=== PATIENT | male | born 1955 | race Two or more races ===

== ENCOUNTER 2021-12-23 18:34 | Emergency (ER) | payer OTHER ==
[~2021-12-23] VITALS: Ht 167.6 cm; Wt 88.0 kg
[~2021-12-23 18:34] MED LIST: AMLO5TAB4; BENA10TA74; METF-881
[2021-12-23] MEDS ORDERED: IV NS 0.9% 1,000 ML BAG IV ONE (19:00)
[2021-12-23] MEDS ORDERED: CEFEPIME 1 GM in IV D5W 50 ML IV ONE (19:00)
[2021-12-23] MEDS ORDERED: VANCOMYCIN 1 GM in IV D5W 250 ML IV ONE (19:00)
--- NOTE | 2021-12-23 19:05 | NUR ---
pt bibself c/o BLE swelling, redness, and weeping x 22 days. pt [id number] breathing evenly and unlabored. Pt attached to monitor and pox.Pt given blanket and call light within reach. will continue to monitor.
--- NOTE | 2021-12-23 19:12 | NUR ---
X-RAY TECH AT THE BEDSIDE
[2021-12-23] MEDS ORDERED: VANCOMYCIN 1 GM VIAL ONE (19:15)
[2021-12-23] MEDS ORDERED: CEFEPIME 1 GM VIAL ONE (19:15)
[2021-12-23 19:48] LABS: CALCIUM, SERUM 8.8 mg/dL (8.5-10.1); CREATININE 1.4 mg/dL (0.6-1.3)
[2021-12-23 19:51] LABS: BASOPHILS % (AUTO) 0.2 % (0.0-2.0); EOSINOPHILS % (AUTO) 7.2 % (0.0-6.0); HEMATOCRIT 45 % (39-51); HEMOGLOBIN 15.3 g/dL (13.5-17.5); LYMPHOCYTES # (AUTO) 1.6 K/uL (0.8-4.8); MEAN CORPUSCULAR HGB CONC 34 g/dl (31.0-36.0); MEAN CORPUSCULAR VOLUME 94 fL (80-96); MONOCYTES # (AUTO) 0.7 K/uL (0.1-1.30); MONOCYTES % (AUTO) 8.5 % (2.0-12.0); NEUTROPHILS # (AUTO) 5.4 K/uL (1.8-8.9); NEUTROPHILS % (AUTO) 65.1 % (43.0-81.0); PLATELET COUNT (AUTO) 324 K/uL (150-450); WHITE BLOOD COUNT (AUTO) 8.3 K/uL (4.3-11.0)
[2021-12-23 19:53] LABS: ALBUMIN 3.9 g/dL (3.4-5.0); BILIRUBIN,DIRECT 0.1 mg/dL (0.0-0.2); BILIRUBIN,TOTAL 0.5 mg/dL (0.2-1.0); TOTAL PROTEIN, SERUM 7.2 g/dL (6.4-8.2)
--- NOTE | 2021-12-23 20:00 | NUR ---
covid swab sent to lab
--- NOTE | 2021-12-23 23:21 | NUR ---
faxed covid neg result to [facility]
[2021-12-24 00:50] VITALS: BP 120/75
--- NOTE | 2021-12-24 01:17 | NUR ---
TRANSFER INFO: PT GOING TO [id number]. NUMBER FOR REPORT [phone]
--- NOTE | 2021-12-24 01:22 | NUR ---
GAVE REPORT TO JACEK WARREN AT [facility]
--- NOTE | 2021-12-24 01:27 | NUR ---
[facility] ETA 5MIN
--- NOTE | 2021-12-24 01:38 | NUR ---
GAVE REPORT TO EMS
== END 2021-12-24 01:38 | disposition short-term general hospital (02) ==
LOC: ER 18:47
DX: L03.116 Cellulitis of left lower limb (principal); L03.115 Cellulitis of right lower limb; Z20.822 Contact with and (suspected) exposure to COVID-19; R91.8 Other nonspecific abnormal finding of lung field; E11.65 Type 2 diabetes mellitus with hyperglycemia; Z79.84 Long term (current) use of oral hypoglycemic drugs; I10 Essential (primary) hypertension; Z79.899 Other long term (current) drug therapy; N28.9 Disorder of kidney and ureter, unspecified
CPT/HCPCS: 36415; 71045; 80048; 80076; 83605; 85025; 85730; 87040 ×2; 87426; 93005; 96365; 96367; 99285; C9803; J0692; J3370; J7060